=== PATIENT | male | born 1950 | race Caucasian/White ===

== ENCOUNTER 2022-10-09 10:44 | Outpatient (CLI) | payer MEDICARE, OTHER | END 2022-10-09 10:45 | disposition home or self-care (01) | LOC: RAD 10:44 | PROVIDERS: ATTEND Internal Medicine Cardiovascular Disease | DX: Z48.812 Encounter for surgical aftercare following surgery on the circulatory system (principal); J94.8 Other specified pleural conditions; Z95.1 Presence of aortocoronary bypass graft | CPT/HCPCS: 71046 ==

== ENCOUNTER 2022-10-16 15:47 | Outpatient (CLI) | payer MEDICARE, OTHER | END 2022-10-16 15:48 | disposition home or self-care (01) | LOC: RAD 15:47 | PROVIDERS: ATTEND Internal Medicine Cardiovascular Disease | DX: Z48.812 Encounter for surgical aftercare following surgery on the circulatory system (principal); Z95.1 Presence of aortocoronary bypass graft | CPT/HCPCS: 71046 ==

== ENCOUNTER 2022-10-30 15:51 | Outpatient (CLI) | payer MEDICARE, OTHER | END 2022-10-30 15:52 | disposition home or self-care (01) | LOC: RAD 15:51 | PROVIDERS: ATTEND Internal Medicine Cardiovascular Disease | DX: R05.9 Cough, unspecified (principal); J90 Pleural effusion, not elsewhere classified | CPT/HCPCS: 36415; 71046; 80048 ==